=== PATIENT | female | born 1995 | race Hispanic/Latino ===

== ENCOUNTER 2024-09-09 20:31 | Emergency (ER) | payer SELFPAY ==
[~2024-09-09] VITALS: Ht 160 cm; Wt 90.7 kg
[2024-09-09 20:33] VITALS: BP 103/64; PULSE 92; RESP 15; TEMP 98.4
== END 2024-09-09 20:37 | disposition left against medical advice (07) ==
LOC: EDH 20:31
DX: F17.200 Nicotine dependence, unspecified, uncomplicated (principal); Z53.21 Procedure and treatment not carried out due to patient leaving prior to being seen by health care provider